=== PATIENT | female | born 1960 | race African-American/Black ===

== ENCOUNTER 2017-02-15 17:20 | Emergency (ER) | payer OTHER, SELFPAY ==
[~2017-02-15] VITALS: Ht 162.6 cm; Wt 97.5 kg
[2017-02-15 17:45] VITALS: BP 136/59
[2017-02-15] MEDS ORDERED: Tetracaine 0.5% Opth Soln LEFT EYE ONE (18:00)
[2017-02-15] MEDS ORDERED: Fluorescein Strips LEFT EYE ONE (18:00)
--- NOTE | 2017-02-15 18:47 | Emergency Room Report ---
History of Present Illness General Chief Complaint: Skin Rash/Abscess Source: Patient Present Illness HPI 56 YO Female presents to the ED c/o painful rash to the forehead and nose that is 10/10 in severity with swelling, and blistering x 2 days. Pt. denies recent travel or ill contacts denies nausea, vomiting, fevers, chills. She states she had chickenpox as a child. Denies previous shingles outbreaks. She denies itching. Patient reports left eye pain, denies changes in vision reports photophobia denies discharge, floaters, or flashing lights. Patient states that she usually wears glasses. denies lesions elsewhere on the body, denies abdominal pain, neck pain /stiffness. Denies CP, Palpitations, LOC, AMS, dizziness, Changes in Vision, Sensation, paresthesias, or a sudden severe headache. Allergies: Coded Allergies: MORPHINE (Verified Allergy, Intermediate, 02/15/17) Patient History Past Medical History: see triage record Past Surgical History: none Pertinent Family History: none Now: No Immunizations: UTD Reviewed Nursing Documentation: PMH: Agreed, PSxH: Agreed Nursing Documentation-PMH Past Medical History: No Stated History Review of Systems All Other Systems: negative except mentioned in HPI Physical Exam Vital Signs Date Time Temp Pulse Resp B/P Pulse Ox O2 Delivery O2 Flow Rate FiO2 02/15/17 17:35 98.2 96 18 136/59 98 Room Air Sp02 EP Interpretation: reviewed, normal General Appearance: no apparent distress, alert, GCS 15, non-toxic Head: normocephalic, atraumatic Eyes: left eye fluoroscene uptake - medial small dendritic lesions noted, do not cross the pupil. no evidence of ulcer. , bilateral eye EOMI, bilateral eye PERRL, bilateral eye normal inspection, bilateral eye other - VA 20/40 bilaterally, pt. wears glasses. ENT: hearing grossly normal, normal pharynx, no angioedema, normal voice, TMs + canals normal Neck: full range of motion, supple/symm/no masses Respiratory: lungs clear, normal breath sounds, speaking full sentences Cardiovascular #1: regular rate, rhythm, no edema Musculoskeletal: back normal, gait/station normal, normal range of motion, non- tender Neurologic: alert, oriented x3, responsive, motor strength/tone normal, sensory intact, speech normal Psychiatric: judgement/insight normal, memory normal, mood/affect normal Skin: normal color, warm/dry, well hydrated, rash - tender vessicluar rash on the left side of forehead, nose, and medial left eyelid, there is some crusting noted. Lymphatic: no adenopathy Medical Decision Making PA Attestation Dr. Jones is my supervising Physician whom patient management has been discussed with. Diagnostic Impression: Primary Impression: HZV (herpes zoster virus) with ophthalmic complication Qualified Codes: B02.30 - Zoster ocular disease, unspecified ER Course 56 YO Female presents to the ED c/o painful rash to the forehead and nose that is 10/10 in severity with swelling, and blistering x 2 days. Ddx considered but are not limited to cellulitis, Shingles, chicken pox, burn, Vital signs: are WNL, pt. is afebrile H&PE are most consistent with Shingles outbreak, with ophthalmic involvement. ORDERS: -Fluorescein & tetracaine for Slit lamp evaluation: evidence of lesions with increased uptake to the medial left eye, no pupil involvement, no ulcers. ED INTERVENTIONS: -Opth Consult: Dr. Foster Pete: recommends oral antiviral, topical abx, and determines pt. to be safe for opth. follow up tomorrow. DISCHARGE: At this time pt. is stable for d/c to home. Will provide printed patient care instructions, and any necessary prescriptions. Care plan and follow up instructions have been discussed with the patient prior to discharge. 800mg Acyclovir 5x daily for 7 days. + Occuflox. Last Vital Signs Date Time Temp Pulse Resp B/P Pulse Ox O2 Delivery O2 Flow Rate FiO2 02/15/17 17:45 98.3 96 18 136/59 98 Room Air Disposition: HOME, SELF-CARE Condition: Stable Physician Consult: Dr. Foster Pete Scripts Gabapentin* (GABAPENTIN*) 100 Mg Capsule 100 MG ORAL THREE TIMES A DAY for 7 Days, #21 CAP Prov: Jazmin Lee P.A. 02/15/17 Ofloxacin (OCUFLOX) 5 Ml Drops 2 DROP OP BID for 5 Days, #5 ML Prov: Jazmin Lee P.A. 02/15/17 Acyclovir* (ZOVIRAX*) 800 Mg Tablet 800 MG ORAL FIVE TIMES A DAY for 10 Days, #50 TAB Prov: Jazmin Lee 02/15/17 Patient Instructions: Shingles, [id number] Additional Instructions: Take medications as directed. Follow up with a Opthalmologist within 24 hours, even if your symptoms have resolved. Return sooner to ED if new symptoms occur, or current symptoms become worse. - Please note that this Emergency Department Report was dictated using [employer] b[employer] technology software, occasionally this can lead to erroneous entry secondary to interpretation by the dictation equipment. Jazmin Lee Feb 15, 2017 18:47
[2017-02-15] MEDS ORDERED: GABAPENTIN100 MG ORAL (18:50)
[2017-02-15] MEDS ORDERED: OCUFLOX5 ML OP (18:50)
[2017-02-15] MEDS ORDERED: ACYCLOVIR800 MG ORAL (18:50)
[2017-02-15 18:59] VITALS: BP 136/59
== END 2017-02-15 19:00 | disposition home or self-care (01) ==
LOC: EMR 18:55
DX: B02.30 Zoster ocular disease, unspecified (principal); Z88.6 Allergy status to analgesic agent
CPT/HCPCS: 99284